=== PATIENT | male | born 1995 | race Caucasian/White ===

== ENCOUNTER 2018-04-22 09:09 | Emergency (ER) | payer MEDICAID, OTHER ==
[~2018-04-22] VITALS: Ht 185.4 cm; Wt 137.0 kg
[2018-04-22] MEDS ORDERED: ONDANSETRON ODT 4 MG PO ONE (09:30)
[2018-04-22] MEDS ORDERED: FAMOTIDINE 20 MG TABLET PO ONE (09:30)
[2018-04-22] MEDS ORDERED: ONDANSETRON ODT 4 MG ONE (09:32)
[2018-04-22] MEDS ORDERED: FAMOTIDINE 20 MG TABLET ONE (09:32)
[2018-04-22 09:53] LABS: BASOPHILS # (AUTO) 0.02 x10^3/uL (0-0.1); BASOPHILS % (AUTO) 0 % (0-1); EOSINOPHILS # (AUTO) 0.07 x10^3/uL (0-0.4); EOSINOPHILS % (AUTO) 1 % (1-7); LYMPHOCYTES # (AUTO) 0.94 x10^3/uL (1-3.4); LYMPHOCYTES % (AUTO) 14 % (22-44); MD NO; MEAN CORPUSCULAR HEMOGLOBIN 30.7 pg (27.5-34.5); MEAN CORPUSCULAR HGB CONC 34.2 g/dL (33.2-36.2); MEAN CORPUSCULAR VOLUME 89.7 fL (81-97); MEAN PLATELET VOLUME 8.1 fL (7.4-10.4); MONOCYTES % (AUTO) 6 % (2-9); NEUTROPHILS # (AUTO) 5.57 x10^3/uL (1.8-6.8); NEUTROPHILS % (AUTO) 80 % (42-75); PLATELET COUNT 231 x10^3/uL (130-400)
[2018-04-22 10:03] LABS: ANION GAP 7 mmol/L (5-15); CALCIUM 8.3 mg/dL (8.5-10.1); CHLORIDE 107 mmol/L (98-107)
[2018-04-22 10:07] LABS: ALANINE AMINOTRANSFERASE 100 U/L (12-78); ALKALINE PHOSPHATASE 86 U/L (45-117); BILIRUBIN,TOTAL 0.8 mg/dL (0.2-1.0); CREATININE 0.84 mg/dL (0.7-1.3); TOTAL PROTEIN 8.3 g/dL (6.4-8.2)
[2018-04-22 10:29] LABS: CULTURE INDICATED? NO; MICROSCOPIC NOT IND
[2018-04-22 10:52] LABS: CLOSTRIDIUM DIFFICILE ANTIGEN NEGATIVE; CLOSTRIDIUM DIFFICILE TOXIN NEGATIVE (Negative)
[2018-04-22 10:56] VITALS: BP 111/53
== END 2018-04-22 11:16 | disposition home or self-care (01) ==
LOC: ED 11:10
DX: K52.9 Noninfective gastroenteritis and colitis, unspecified (principal)
CPT/HCPCS: 36415; 71046; 80053; 81003; 85025; 87324; 89055; 93005; 99285; Q0162

== ENCOUNTER 2020-07-31 00:28 | Emergency (ER) | payer MEDICAID, OTHER ==
[~2020-07-31] VITALS: Ht 182.9 cm; Wt 89.0 kg
[2020-07-31 00:30] VITALS: BP 148/85
--- NOTE | 2020-07-31 00:36 | NUR ---
Pt BIBA for right testicle pain after having sex. Patient states that he has the sensation of feeling like he needs to urinate but unable to. EMS gave 175mg of Fenteyal with good effect. Pain 09/15. Patient states that he has never had pain like this before, provider at bedside
--- NOTE | 2020-07-31 00:43 | NUR ---
Patient stated that he is comfortable right now and doesn't need pain medication. Provider aware.
[2020-07-31] MEDS ORDERED: SODIUM CHLORIDE FLUSH 10ML SYR IVF ONE (01:00)
[2020-07-31] MEDS ORDERED: ONDANSETRON 2MG/ML, 2ML IVPush ONE (01:00)
[2020-07-31] MEDS ORDERED: MORPHINE SULFATE 4 MG/ML, 1ML IVPush PRN (01:00)
[2020-07-31 01:17] LABS: BASOPHILS % (AUTO) 0 % (0-1); EOSINOPHILS % (AUTO) 0 % (1-7); LYMPHOCYTES % (AUTO) 9 % (22-44); MEAN CORPUSCULAR HEMOGLOBIN 30.6 pg (27.5-34.5); MEAN CORPUSCULAR HGB CONC 33.9 g/dL (33.2-36.2); MEAN PLATELET VOLUME 7.4 fL (7.4-10.4); MONOCYTES % (AUTO) 4 % (2-9); NEUTROPHILS % (AUTO) 86 % (42-75); PLATELET COUNT 266 x10^3/uL (130-400); RED BLOOD COUNT 4.98 x10^6/uL (4.38-5.82); RED CELL DISTRIBUTION WIDTH 13.9 % (9.4-14.8)
[2020-07-31 01:18] LABS: MD NO
[2020-07-31 01:27] LABS: ANION GAP 8 mmol/L (5-15); CALCIUM 8.6 mg/dL (8.5-10.1); CHLORIDE 107 mmol/L (98-107); CREATININE 1.01 mg/dL (0.7-1.3)
[2020-07-31 02:24] LABS: MICROSCOPIC AUTO
[2020-07-31] MEDS ORDERED: POTASSIUM CHLORIDE 20 MEQ TAB.ER.PRT ONE (02:27)
[2020-07-31] MEDS ORDERED: POTASSIUM CHLORIDE 20 MEQ TAB.ER.PRT PO ONE (02:30)
[2020-07-31] MEDS ORDERED: ONDANSETRON 2MG/ML, 2ML ONE (02:34)
--- NOTE | 2020-07-31 02:56 | NUR ---
f/u and d/c instructions given to pt and he v/u. piv d/c'd after meds given per emar. pt ambulatory, and no acute distress at this time.
== END 2020-07-31 03:00 | disposition home or self-care (01) ==
LOC: ED 01:42
DX: N20.1 Calculus of ureter (principal); N23 Unspecified renal colic; N50.811 Right testicular pain; F17.210 Nicotine dependence, cigarettes, uncomplicated
CPT/HCPCS: 36415; 74176; 76870; 80048; 81001; 82040; 85025; 87086; 96374; 99285; 99406; J2405